=== PATIENT | female | born 1985 | race Caucasian/White ===

== ENCOUNTER 2019-09-06 07:41 | Emergency (ER) | payer OTHER ==
[~2019-09-06] VITALS: Ht 162.6 cm; Wt 84.4 kg
[2019-09-06 07:45] VITALS: Ht 162.6 cm; Wt 84.4 kg
[2019-09-06 08:32] LABS: PLATELET COUNT 377 x10^3mcL (130-400); RED CELL DISTRIBUTION WIDTH 13.2 % (11.5-14.5)
[2019-09-06 08:40] LABS: CALCIUM 9.4 mg/dL (8.5-10.1); CARBON DIOXIDE 21.1 mmol/L (21-32); CHLORIDE SERUM 106 mmol/L (98-107); CREATININE SERUM 0.8 mg/dL (0.6-1.0); GFR1 > 60 mL/min; GLUCOSE SERUM 156 mg/dL (74-106); POTASSIUM SERUM 4.2 mmol/L (3.5-5.1); SODIUM SERUM 141 mmol/L (136-145)
[2019-09-06 08:52] LABS: ALBUMIN 4.2 g/dL (3.4-5.0); ALKALINE PHOSPHATASE 125 U/L (46-116); ALT/SGPT 45 U/L (14-59); AST/SGOT 26 U/L (15-37); BILIRUBIN TOTAL 0.4 mg/dL (0.20-1.00)
[2019-09-06 09:00] LABS: TOTAL PROTEIN, SERUM 8.4 g/dL (6.4-8.2)
[2019-09-06 09:35] LABS: BAND NEUTROPHIL 2 % (0-10); BASOPHIL 0 % (0-2); MONOCYTE 2 % (0-7); PLATELET MORPHOLOGY PLATELETS INCREASED; SEGMENTED NEUTROPHILS 91 % (37-75)
[2019-09-06 09:36] LABS: rbc morphology (normal/abnorm) ABNORMAL (NORMAL)
[2019-09-06 15:02] VITALS: BP 113/61
== END 2019-09-06 15:20 | disposition home or self-care (01) ==
LOC: ED 07:41
PROVIDERS: Emergency Medicine
DX: R10.2 Pelvic and perineal pain (principal); J18.9 Pneumonia, unspecified organism; D72.829 Elevated white blood cell count, unspecified; R51 Headache; Z86.73 Personal history of transient ischemic attack (TIA), and cerebral infarction without residual deficits
CPT/HCPCS: J0456; J0696; J2405; J7030